=== PATIENT | male | born 1970 | race Caucasian/White ===

== ENCOUNTER 2018-02-11 20:03 | Inpatient (IN) | payer OTHER ==
[~2018-02-11] VITALS: Ht 160 cm; Wt 48.3 kg
[2018-02-11] VITALS (7 sets, daily range): BP systolic 95–169; BP diastolic 57–85
--- NOTE | ~2018-02-11 | EKG ---
[place], [place] ELECTROCARDIOGRAM REPORT NAME: DOUGLAS RICHEY JR UNIT #: [id number] ROOM: 407 DOCTOR: EPIPHANY DRAFT REPORT BIRTHDATE: [birth year] [facility] Test Date: 2018-02-11 Test Time: 20:07:15 Pat Name: DOUGLAS RICHEY Department: Room: Gender: Cripple Worker: : 1970 Requested By: JACOB DOVE Order Number: [id number] Reading MD: Linda Carranza MD Measurements Intervals [place] Rate: 61 P: 85 OR: 122 QRS: 85 QRSD: 86 T: 73 QT: 418 QTc: 421 Interpretive Statements Sinus rhythm Probable left atrial enlargement Poor R wave progression. Abnormal EKG. Electronically Signed On 02-12-2018 16:10:41 PDT by Linda Carranza MD CM:EKGRPT:ELECTROCARDIOGRAM REPORT [id number] JACOB DOVE MD EPIPHANY DRAFT REPORT JACOB DOVE MD
--- NOTE | ~2018-02-11 | EKG ---
[place], [place] ELECTROCARDIOGRAM REPORT NAME: DOUGLAS RICHEY JR UNIT #: [id number] ROOM: 407 DOCTOR: SAMARIA DRAFT REPORT BIRTHDATE: [birth year] [facility] Test Date: 2018-02-11 Test Time: 23:35:11 Pat Name: DOUGLAS RICHEY Department: Room: Gender: Client Services Representative: SS RESP : 1970 Requested By: JACOB DOVE Order Number: [id number] Reading MD: Linda Carranza MD Measurements Intervals [place] Rate: 63 P: 84 RI: 113 QRS: 84 QRSD: 84 T: -68 QT: 394 QTc: 404 Interpretive Statements Sinus rhythm Borderline short RI interval Borderline repolarization abnormality No significant change when compared to prior EKG Abnormal EKG. Electronically Signed On 02-12-2018 16:13:42 PDT by Linda Carranza MD CM:EKGRPT:ELECTROCARDIOGRAM REPORT [id number] JACOB DOVE MD EPIPHANY DRAFT REPORT JACOB DOVE MD
--- NOTE | ~2018-02-11 | EKG ---
[place], [place] ELECTROCARDIOGRAM REPORT NAME: DOUGLAS RICHEY JR UNIT #: [id number] ROOM: [facility] DOCTOR: EPIPHANY DRAFT REPORT BIRTHDATE: [birth year] [facility] Test Date: 2018-02-12 Test Time: 02:37:11 Pat Name: DOUGLAS RICHEY Department: Room: [facility] Gender: M [employer] Counselor: Jefferson Chawla : 1970 Requested By: JACOB DOVE Order Number: [id number] Reading MD: Linda Carranza MD Measurements Intervals [place] Rate: 56 P: 83 AR: 116 QRS: 85 QRSD: 83 T: 71 QT: 426 QTc: 412 Interpretive Statements Sinus rhythm Borderline short AR interval Normal EKG. Electronically Signed On 02-12-2018 16:17:12 PDT by Linda Carranza MD CM:EKGRPT:ELECTROCARDIOGRAM REPORT [id number] JACOB DOVE MD EPIPHANY DRAFT REPORT JACOB DOVE MD
[~2018-02-11 20:03] MED LIST: 'PARAFON FORTE500 M1 PO; ABILIFY5 MG PO; ATIVAN1 MG PO; CELEXA20 MG PO; CLINDAMYCIN HY300 MG PO; DAYPRO600 M1 PO; HYDROCODONE BIT1 T11 PO; IBU-8800 MG PO; MOTRIN800 MG PO; NAPROSYN500 MG PO; NKHM; PREDNISONE10 MG PO; PRILOSEC20 MG; ROBAXIN750 MG PO; ROBITUSSIN DM 105 ML PO; SILVADENE1% TP; TRAMADOL HCL50 MG PO; ULTRAM50 MG PO; WELLBUTRIN SR150 MG PO; WELLBUTRIN SR200 MG PO
[2018-02-11 20:49] LABS: BASO % 0.3 % (0.0-1.0); EOS # 0.1 10*3/uL (0.0-0.4); EOS % 0.9 % (1.0-4.0); HEMOGLOBIN 13.9 g/dl (14.0-18.0); LYMPH # 2.4 10*3/uL (1.3-4.4); LYMPH % 30.8 % (27.0-41.0); MEAN CORPUSCULAR HGB 30.2 pg (27.0-31.0); MEAN CORPUSCULAR HGB CONC 34.8 g/dl (33.0-37.0); MEAN PLATELET VOLUME 10.1 fl (9.6-12.3); MONO # 0.4 10*3/uL (0.1-1.0); MONO % 5.6 % (3.0-9.0); NEUT # 4.9 10*3/uL (2.3-7.9); PLATELET COUNT AUTOMATED 251 10*3/uL (130-400); RED CELL DISTRI WIDTH 13.5 % (0-14.5); WHITE BLOOD COUNT 7.8 10*3/uL (4.8-10.8)
[2018-02-11 20:59] LABS: ACT PARTIAL THROMBO TIME 26.3 SECONDS (20.8-31.5); INTERNATIONAL NORM RATIO 1.1 (2.0-3.5)
[2018-02-11 21:07] LABS: ALBUMIN 3.7 gm/dl (3.1-4.5); ALKALINE PHOSPHATASE 80 U/L (45-117); BUN 13 mg/dl (7-24); CHLORIDE 105 mmol/L (98-107); CREATININE 1.21 mg/dL (0.70-1.30); LIPASE 85 U/L (73-393); POTASSIUM 3.4 mmol/L (3.5-5.1); SGOT/AST 16 IU/L (3-35); SGPT/ALT 17 U/L (12-78); SODIUM 140 mmol/L (136-145); TOTAL PROTEIN 7.1 gm/dL (6.4-8.2)
[2018-02-11 21:10] LABS: TROPONIN I < 0.015 ng/ml (<0.045)
[2018-02-12 00:32] VITALS: BP 117/81
[2018-02-12 00:40] VITALS: BP 120/69
[2018-02-12 04:00] VITALS: BP 90/61
[2018-02-12 07:38] LABS: BASO % 0.2 % (0.0-1.0); EOS # 0.2 10*3/uL (0.0-0.4); HEMATOCRIT 41.6 % (42.0-52.0); HEMOGLOBIN 14.1 g/dl (14.0-18.0); LYMPH # 1.7 10*3/uL (1.3-4.4); LYMPH % 9.8 % (27.0-41.0); MEAN CELL VOLUME 89.3 fl (80.0-94.0); MEAN CORPUSCULAR HGB 30.3 pg (27.0-31.0); MEAN CORPUSCULAR HGB CONC 33.9 g/dl (33.0-37.0); MEAN PLATELET VOLUME 10.3 fl (9.6-12.3); MONO # 0.8 10*3/uL (0.1-1.0); MONO % 4.8 % (3.0-9.0); NEUT # 14.5 10*3/uL (2.3-7.9); NEUT % 83.7 % (47.0-73.0); PLATELET COUNT AUTOMATED 249 10*3/uL (130-400); RED BLOOD COUNT 4.66 10*6/uL (4.50-5.90); RED CELL DISTRI WIDTH 13.7 % (0-14.5); WHITE BLOOD COUNT 17.4 10*3/uL (4.8-10.8)
[2018-02-12 07:56] LABS: BUN 15 mg/dl (7-24); CHLORIDE 106 mmol/L (98-107); CHOLESTEROL 105 mg/dL (<200); HDL CHOLESTEROL 35 mg/dl (40-60); LDL CHOLESTEROL 52 mg/dL (9-159); PHOSPHOROUS 2.8 mg/dL (2.5-4.9); SODIUM 139 mmol/L (136-145); TRIGLYCERIDES 92 mg/dl (<150); VLDL CHOLESTEROL 18 mg/dL (6-40)
[2018-02-12 08:00] VITALS: BP 92/48
[2018-02-12 08:03] LABS: FREE T4 1.09 ng/dl (0.76-1.46)
[2018-02-12 08:04] LABS: POTASSIUM 4.6 mmol/L (3.5-5.1)
[2018-02-12 12:00] VITALS: BP 90/56; BP 92/48
[2018-02-12] MEDS ORDERED: VITAMIN D31000 UNI1 PO (13:37)
== END 2018-02-12 13:58 | disposition home or self-care (01) | DRG 392 ==
LOC: ED 20:03 → EDHOLD 22:41 → 4E 22:41
PROVIDERS: Emergency Medicine Emergency Medical Services; Internal Medicine
PROC: 4A02XM4 Measurement of Cardiac Total Activity, External Approach (ICD-10-PCS; principal; 2018-02-12)
PROC: 3E073KZ Introduction of Other Diagnostic Substance into Coronary Artery, Percutaneous Approach (ICD-10-PCS; 2018-02-12)
DX: K21.9 Gastro-esophageal reflux disease without esophagitis (principal); E44.0 Moderate protein-calorie malnutrition; Z68.1 Body mass index [BMI] 19.9 or less, adult; R07.89 Other chest pain; D64.9 Anemia, unspecified; E87.6 Hypokalemia; Z71.6 Tobacco abuse counseling; R11.2 Nausea with vomiting, unspecified; I10 Essential (primary) hypertension; K27.9 Peptic ulcer, site unspecified, unspecified as acute or chronic, without hemorrhage or perforation; F17.200 Nicotine dependence, unspecified, uncomplicated; E55.9 Vitamin D deficiency, unspecified; Z88.5 Allergy status to narcotic agent; Z91.041 Radiographic dye allergy status; Z90.49 Acquired absence of other specified parts of digestive tract

== ENCOUNTER 2019-11-19 09:26 | Emergency (ER) | payer OTHER ==
[~2019-11-19] VITALS: Ht 162.5 cm; Wt 54.4 kg
[~2019-11-19 09:26] MED LIST changes: +Motrin,Rufen800 MG PO; +VITAMIN D31000 UNI1 PO
== END 2019-11-19 11:22 | disposition home or self-care (01) ==
LOC: ED 09:26
DX: R07.89 Other chest pain (principal); F41.9 Anxiety disorder, unspecified; J44.9 Chronic obstructive pulmonary disease, unspecified; K21.9 Gastro-esophageal reflux disease without esophagitis; F17.200 Nicotine dependence, unspecified, uncomplicated; Z88.5 Allergy status to narcotic agent; Z91.041 Radiographic dye allergy status; Z90.49 Acquired absence of other specified parts of digestive tract

== ENCOUNTER 2019-11-29 19:10 | Emergency (ER) | payer OTHER ==
[~2019-11-29] VITALS: Ht 165.1 cm; Wt 54.4 kg
[2019-11-29 20:00] LABS: BASO # 0.1 10*3/uL (0.0-0.1); BASO % 0.5 % (0.0-1.0); EOS # 0.2 10*3/uL (0.0-0.4); EOS % 1.7 % (1.0-4.0); HEMATOCRIT 41.5 % (42.0-52.0); LYMPH # 1.6 10*3/uL (1.3-4.4); LYMPH % 16.3 % (27.0-41.0); MEAN CELL VOLUME 89.4 fl (80.0-94.0); MEAN CORPUSCULAR HGB 30.6 pg (27.0-31.0); MEAN CORPUSCULAR HGB CONC 34.2 g/dl (33.0-37.0); MEAN PLATELET VOLUME 10.1 fl (9.6-12.3); MONO # 0.4 10*3/uL (0.1-1.0); MONO % 4.6 % (3.0-9.0); NEUT # 7.3 10*3/uL (2.3-7.9); NEUT % 76.6 % (47.0-73.0); PLATELET COUNT AUTOMATED 233 10*3/uL (130-400); RED BLOOD COUNT 4.64 10*6/uL (4.50-5.90); RED CELL DISTRI WIDTH 13.7 % (0-14.5); WHITE BLOOD COUNT 9.6 10*3/uL (4.8-10.8)
[2019-11-29 20:17] LABS: ALBUMIN 3.5 gm/dl (3.1-4.5); ALKALINE PHOSPHATASE 100 U/L (45-117); BUN 15 mg/dl (7-24); CHLORIDE 106 mmol/L (98-107); CREATININE 1.02 mg/dL (0.70-1.30); POTASSIUM 3.6 mmol/L (3.5-5.1); SGOT/AST 16 IU/L (3-35); SGPT/ALT 20 U/L (12-78); SODIUM 139 mmol/L (136-145); TOTAL PROTEIN 6.9 gm/dL (6.4-8.2)
[2019-11-29 20:26] LABS: TROPONIN I < 0.015 ng/ml (<0.045)
[2019-11-29] MEDS ORDERED: CYCLOBENZAPRINE10 MG PO (20:50)
[2019-11-29] MEDS ORDERED: IBU800 M1 PO (20:50)
== END 2019-11-29 20:54 | disposition home or self-care (01) ==
LOC: ED 19:10
PROVIDERS: Emergency Medicine
DX: S20.20XA Contusion of thorax, unspecified, initial encounter (principal); R07.9 Chest pain, unspecified; Z79.899 Other long term (current) drug therapy; X50.0XXA Overexertion from strenuous movement or load, initial encounter; Y93.89 Activity, other specified; Y92.89 Other specified places as the place of occurrence of the external cause; Y99.8 Other external cause status

== ENCOUNTER → 2022-01-25 | Outpatient (CLI) | payer OTHER ==
[~2022-01-25] MED LIST changes: +CYCLOBENZAPRINE10 MG PO; +IBU800 M1 PO
== END | disposition home or self-care (01) ==
LOC: RAD 15:40
PROVIDERS: ATTEND Internal Medicine
DX: S52.612A Displaced fracture of left ulna styloid process, initial encounter for closed fracture (principal); X58.XXXA Exposure to other specified factors, initial encounter; Y93.89 Activity, other specified; Y92.89 Other specified places as the place of occurrence of the external cause; Y99.8 Other external cause status

== ENCOUNTER 2023-03-21 14:18 | Emergency (ER) | payer OTHER ==
[~2023-03-21] VITALS: Ht 162.5 cm; Wt 53.5 kg
== END 2023-03-21 16:52 | disposition home or self-care (01) ==
LOC: ED 14:18
DX: S16.1XXA Strain of muscle, fascia and tendon at neck level, initial encounter (principal); R51.9 Headache, unspecified; R91.1 Solitary pulmonary nodule; F17.200 Nicotine dependence, unspecified, uncomplicated; Z91.041 Radiographic dye allergy status; Z88.5 Allergy status to narcotic agent; Z90.49 Acquired absence of other specified parts of digestive tract; V89.2XXA Person injured in unspecified motor-vehicle accident, traffic, initial encounter; Y93.89 Activity, other specified; Y92.89 Other specified places as the place of occurrence of the external cause; Y99.8 Other external cause status